=== PATIENT | male | born 1945 | race Asian ===

== ENCOUNTER → 2017-01-11 | Outpatient (CLI) | payer MEDICARE, MEDICAID | END | disposition home or self-care (01) | LOC: CFH 15:37 | PROVIDERS: ATTEND Physician Assistant Surgical | DX: M48.06 Spinal stenosis, lumbar region (principal); M47.896 Other spondylosis, lumbar region; M51.26 Other intervertebral disc displacement, lumbar region | CPT/HCPCS: 72110; 72148 ==

== ENCOUNTER → 2017-05-31 | Outpatient (CLI) | payer MEDICARE, MEDICAID | END | disposition home or self-care (01) | LOC: CFH 10:21 | PROVIDERS: ATTEND Physician Assistant Surgical | DX: M48.06 Spinal stenosis, lumbar region (principal); M51.36 Other intervertebral disc degeneration, lumbar region; M51.27 Other intervertebral disc displacement, lumbosacral region; M51.26 Other intervertebral disc displacement, lumbar region | CPT/HCPCS: 72110; 72148 ==

== ENCOUNTER → 2021-02-27 | Outpatient (CLI) | payer MEDICARE, MEDICAID ==
[~2021-02-27] MED LIST: OMNIPAQUE 350 MG/ML, 150 ML BOTTLE ONE
== END | disposition home or self-care (01) ==
LOC: CFH 08:28
PROVIDERS: ATTEND Physician Assistant
DX: N40.0 Benign prostatic hyperplasia without lower urinary tract symptoms (principal); R31.0 Gross hematuria
CPT/HCPCS: 74178; Q9967